=== PATIENT | male | born 1960 | race Caucasian/White ===

== ENCOUNTER 2022-10-31 08:04 | Outpatient (RCR) | payer MEDICAID, SELFPAY | END 2022-12-11 16:00 | disposition home or self-care (01) | LOC: HO.WCC 08:04 | PROVIDERS: PCP Internal Medicine; Visit Provider Physician Assistant | DX: L97.512 Non-pressure chronic ulcer of other part of right foot with fat layer exposed (principal); G60.9 Hereditary and idiopathic neuropathy, unspecified; L84 Corns and callosities; I10 Essential (primary) hypertension; F10.90 Alcohol use, unspecified, uncomplicated; Z87.891 Personal history of nicotine dependence | CPT/HCPCS: 11042; 97597 ==

== ENCOUNTER 2023-03-16 | Outpatient (RCR) | payer OTHER, SELFPAY | END 2023-06-19 12:10 | disposition home or self-care (01) | LOC: HO.WCC | PROVIDERS: Visit Provider Surgery | DX: Z09 Encounter for follow-up examination after completed treatment for conditions other than malignant neoplasm (principal); G60.8 Other hereditary and idiopathic neuropathies; L84 Corns and callosities; A52.16 Charcot's arthropathy (tabetic); I10 Essential (primary) hypertension; Z89.411 Acquired absence of right great toe; Z87.891 Personal history of nicotine dependence; Z87.2 Personal history of diseases of the skin and subcutaneous tissue | CPT/HCPCS: 11042; 99211; 99212 ==